=== PATIENT | male | born 1980 | race Caucasian/White ===

== ENCOUNTER 2018-11-13 08:46 | Outpatient (CLI) | payer OTHER ==
[2018-11-13 09:50] LABS: CLARITY,URINE CLEAR (Clear); COLOR,URINE YELLOW (Yellow); GLUCOSE, URINE NEGATIVE (Neg); KETONES,URINE NEGATIVE (Neg); LEUKOCYTE ESTERASE ,URINE NEGATIVE (Neg); NITRITES, URINE NEGATIVE (Neg); OCCULT BLOOD,URINE NEGATIVE (Neg); PH,URINE 5.5 (4.8-8.0); PROTEIN,URINE NEGATIVE (Neg); UROBILINOGEN,URINE 0.2 E.U/dL (0.2-1.0)
[2018-11-13 09:59] LABS: UA COLLECTION TYPE NON-SPECIFIED
== END 2018-11-13 23:59 | disposition home or self-care (01) ==
LOC: LAB 08:46
PROVIDERS: ATTEND Obstetrics & Gynecology
DX: I86.1 Scrotal varices (principal); Z20.2 Contact with and (suspected) exposure to infections with a predominantly sexual mode of transmission; Z87.891 Personal history of nicotine dependence
CPT/HCPCS: 36415; 81003; 87491